=== PATIENT | female | born 1990 | race Caucasian/White ===

== ENCOUNTER 2017-10-10 15:08 | Emergency (ER) | payer MEDICAID, OTHER ==
[2017-10-10 15:22] VITALS: BP 145/91; PULSE 84; RESP 16; TEMP 99.3; O2SAT 99
--- NOTE | 2017-10-10 16:48 | ED PDOC ---
HPI: General Adult Time Seen by Provider: 10/10/17 15:27 Chief Complaint (Nursing): Headache Chief Complaint (Provider): Headache History Per: Patient History/Exam Limitations: no limitations Onset/Duration Of Symptoms: Days (x2) Current Symptoms Are (Timing): Still Present Additional Complaint(s): 27 y/o female presents to the ED complaining of right sided neck pain, onset two days ago. Patient reports of also feeling a palpable mass on the right posterior neck. Patient states she saw her PMD and was given a prescription of a muscle relaxer and motrin as well as a referral to follow up with a neurologist for neck pain and recent increase in frequency of migraines. Patient reports she called neurologist and the earliest she could have an appointment was November 20. Patient states pain is getting worse thus prompting ER visit. PMD: Mauri Clarke Past Medical History Reviewed: Historical Data, Nursing Documentation, Vital Signs Vital Signs: Last Vital Signs Temp 99.3 F 10/10/17 15:16 Pulse 84 10/10/17 15:16 Resp 16 10/10/17 15:16 BP 145/91 H 10/10/17 15:16 Pulse Ox 99 10/10/17 17:11 - Medical History PMH: No Chronic Diseases - Surgical History Surgical History: No Surg Hx - Family History Family History: States: Unknown Family Hx - Allergies Allergies/Adverse Reactions: Allergies Allergy/AdvReac Type Severity Reaction Status Date / Time Sulfa (Sulfonamide Allergy RASH Verified 10/10/17 15:16 Antibiotics) Review of Systems ROS Statement: Except As Marked, All Systems Reviewed And Found Negative Musculoskeletal: Positive for: Neck Pain Physical Exam - Reviewed Nursing Documentation Reviewed: Yes Vital Signs Reviewed: Yes - Physical Exam Appears: Positive for: Non-toxic, No Acute Distress Head Exam: Positive for: ATRAUMATIC Skin: Positive for: Normal Color, Warm Eye Exam: Positive for: Normal appearance Neck: Negative for: Normal (Tenderness of the right trap and right paraspinal muscle. Palpable mass approximately 1 cm in diameter, movable, and well defined consistent with lymph nodes) Cardiovascular/Chest: Positive for: Regular Rate, Rhythm Respiratory: Positive for: Normal Breath Sounds. Negative for: Respiratory Distress Extremity: Positive for: Normal ROM. Negative for: Deformity Neurologic/Psych: Positive for: Alert, Oriented. Negative for: Motor/Sensory Deficits - ECG O2 Sat by Pulse Oximetry: 99 (RA) Pulse Ox Interpretation: Normal Medical Decision Making Medical Decision Making: Time: 1627 Plan: -- CMP -- ED Urine -- CBC with Differentials -- Valium 5 mg PO -- Discussed with patient about getting an outpatient MRI. Patient advised to get referral from PMD for MRI. Patient called PMD's office requesting a referral who stated she must come to the office as soon as she can to pick it up. Therefore, patient declined further evaluation of blood work and lab work. Patient additionally declined prescription for muscle relaxer and states she will continue those already prescribed for her. Scribe Attestation: Documented by Maulik Iyer, acting as a scribe for Gricelda Clifford PA-C. Provider Scribe Attestation: All medical record entries made by the Scribe were at my direction and personally dictated by me. I have reviewed the chart and agree that the record accurately reflects my personal performance of the history, physical exam, medical decision making, and the department course for this patient. I have also personally directed, reviewed, and agree with the discharge instructions and disposition. Disposition - Clinical Impression Clinical Impression: Neck pain - Disposition Referrals: Mauri Clarke MD [Family Provider] - Disposition: Routine/Home Disposition Time: 16:48 Condition: STABLE Instructions: Neck Pain Forms: [facility] ([place])
== END 2017-10-10 17:24 | disposition home or self-care (01) ==
LOC: H.ER 15:08
DX: M54.2 Cervicalgia (principal)